=== PATIENT | female | born 1990 | race Caucasian/White ===

== ENCOUNTER 2018-12-01 20:16 | Emergency (ER) | payer SELFPAY ==
[~2018-12-01] VITALS: Ht 160 cm; Wt 86.2 kg
[2018-12-01 20:20] VITALS: BP 143/80
[2018-12-01] MEDS ORDERED: KETOROLAC 30 MG/ML VIAL IM ONE (20:30)
[2018-12-01] MEDS ORDERED: LIDOCAINE MPF 1% 5 ML ONE (20:40)
[2018-12-01] MEDS ORDERED: LIDOCAINE 1% 500 MG/50 ML VIAL INJ SCH (20:40)
[2018-12-01 21:38] VITALS: BP 143/80
== END 2018-12-01 21:38 | disposition home or self-care (01) ==
LOC: MED 20:16
DX: S61.411A Laceration without foreign body of right hand, initial encounter (principal); S61.412A Laceration without foreign body of left hand, initial encounter; S91.311A Laceration without foreign body, right foot, initial encounter; S91.312A Laceration without foreign body, left foot, initial encounter; W25.XXXA Contact with sharp glass, initial encounter; Y93.89 Activity, other specified; Y92.89 Other specified places as the place of occurrence of the external cause; Y99.8 Other external cause status
CPT/HCPCS: 12001; 90471; 90715; 99284; J2001